=== PATIENT | female | born 1970 | race Caucasian/White ===

== ENCOUNTER 2018-02-23 09:03 | Outpatient (CLI) | payer OTHER, SELFPAY ==
--- NOTE | 2018-02-23 10:30 | DI.RAD_ITS ---
SYMPTOM/DIAGNOSIS: EPIGASTRIC PAIN, EARLY SATIETY UPPER GI: Fluoroscopy Time: 1 min 54 seconds Routine examination was performed. Preliminary xray of the abdomen shows no evidence of bowel obstruction. There is a normal swallowing mechanism. No gastroesophageal reflux is seen. No ulcers, strictures, intrinsic or extrinsic masses are seen in the esophagus. There is normal transit through the stomach. No evidence of gastric outlet obstruction is seen. There is a small diverticulum arising from the second portion of the duodenum. The duodenal wall has a normal appearance. IMPRESSION: Small duodenal diverticulum. Otherwise unremarkable upper GI.
[2018-02-23] MEDS: Barium Sulfate 60% W/V 355 ML BTL PO (10:39)
[2018-02-23 12:13] LABS: ALT 20 U/L (12-78); Lipase 154 U/L (73-393)
== END 2018-02-23 09:23 ==
PROVIDERS: PCP General Practice; Visit Provider General Practice
DX: R10.9 Unspecified abdominal pain (principal); R10.13 Epigastric pain; K57.10 Diverticulosis of small intestine without perforation or abscess without bleeding; R68.81 Early satiety
CPT/HCPCS: 36415; 83690; 74247; 84460; J3490

== ENCOUNTER 2019-02-17 16:24 | Outpatient (REF) | payer MEDICAID, SELFPAY ==
--- NOTE | 2019-02-17 15:30 | PAPFT_PTH ---
PATIENT: JASIEL GONSALVES LOC: [facility] U#:[id number] AGE/SX: 48/F ROOM: RE02/17/[address]: Jules Palma : 1970 BED: DIS: 02/17/2019 SPEC #: [id number] RECD: 02/17/19 18:04 STATUS: CINDY REQ #: [id number] MIRIAM: 02/17/19 15:[address]: Jules Palma DEPT: [facility] Cytology RECD BY: Keira Tellez ENTERED: 02/17/19 18:04 SP TYPE: PAPFT OTHR DR: Mateo Boggs Tissues: 1 - CX/ENDOCX FOR PAP SMEARS Procedures: PAP THIN PREP/UVM Screening HPV DNA PROBE Comments: [id number]
[2019-02-17 19:11] LABS: HCT 42.5 % (36.0-46.0); Mean Corp. HGB Concentration 32.9 g/dL (32.0-36.0); Mean Corpuscular Hemoglobin 29.5 pg (27.0-33.0); Mean Corpuscular Volume 89.5 fL (80-95); Mean Platelet Volume 12.6 fL (8.0-11.0); Platelet Count 222 x1000/uL (130-400); RBC 4.75 m/cumm (4.00-5.20); RBC Distribution Width 13.9 % (11.7-14.6)
[2019-02-17 19:29] LABS: ALT 18 U/L (14-59); AST 16 U/L (15-37); Alkaline Phosphatase 95 U/L (46-116); Anion Gap 9.3 mmol/L (3-11); BUN 9 mg/dL (7-18); Bilirubin, Total 0.7 mg/dL (0.2-1.0); CO2 31.7 mmol/L (21.0-32.0); CREATININE 0.86 mg/dL (0.55-1.02); Calcium 9.5 mg/dL (8.5-10.1); Calculated LDL 102 mg/dL; Chloride 103 mmol/L (98-107); Cholesterol 170 mg/dL (<200); Glucose 97 mg/dL (74-106); HDL Cholesterol 44 mg/dL (40-60); Potassium 4.1 mmol/L (3.5-5.1); Sodium 144 mmol/L (136-145); TSH 1.39 uIU/mL (0.36-3.74); Total Protein 7.1 g/dL (6.4-8.2); Triglyceride 121 mg/dL (<150)
== END 2019-02-17 16:44 ==
LOC: NCHCN 16:24
PROVIDERS: PCP General Practice; Visit Provider Nurse Practitioner Family
DX: R10.11 Right upper quadrant pain (principal); Z13.220 Encounter for screening for lipoid disorders; Z12.4 Encounter for screening for malignant neoplasm of cervix; Z11.51 Encounter for screening for human papillomavirus (HPV); Z00.00 Encounter for general adult medical examination without abnormal findings
CPT/HCPCS: 80053; 80061; 85027; 88142; 84443; 87624

== ENCOUNTER 2019-02-28 11:41 | Day surgery (SDC) | payer MEDICAID, SELFPAY ==
--- NOTE | 2019-02-28 06:56 | ENDO_ITS ---
Date of service: 02/28/19 Time of Service: 12:46 Endoscopy Report DATE OF PROCEDURE: 02/28/19 PRE-OP DIAGNOSIS: Blaoting and early satiety POST-OP DIAGNOSIS: other (Gastritis, Duodenitis and esophagitis) PROCEDURE: EGD with biopsies SURGEON: Jennifer Recinos ANESTHESIA: other (General/ ASA 2/Mateo Bailon, NICOLE) ESTIMATED BLOOD LOSS: 3 PATHOLOGY: other (Duodenal bx, Antrum bx, GE junction bx) COMPLICATIONS: None DISPOSITION: same day INDICATIONS: Mrs. Clement is a pleasant 48 year old female here today because she has been having increased bloating and early satiety for about 1 year. She denies post-prandial pain or weight loss. She denies hematemesis. She denies burning chest pain or abdominal pain. She hasn't had diarrhea. She sometimes feels she can't empty her bowels completely and ends up going several times per day. The stool is normally soft. She also tells me that she has been belching a lot more. She had a small bowel follow through which showed a duodenal diverticulum. No US has been done or CT scan FINDINGS: Duodenitis, Gastritis and esophagitis ? Thyroid nodule noted when patients head was back on the pillow PROCEDURE DESCRIPTION: After informed consent was obtained the patient was take to the procedure room and placed in a supine position. Monitors were applied and a time out was done. The patients name, date of , procedure type, allergies to medications and metal in their body was reviewed. A bite block was placed and the patient was sedated. Once sedated and comfortable the gastroscope was advanced through the oropharynx which was grossly normal into the esophagus. The proximal and mid- esophagus were normal. In the distal esophagus there was inflammation noted. The scope was advanced into the stomach and through the pylorus into the 3rd portion of the duodenum. The duodenum was noted to have some inflammation. Biopsies were done. The scope was retracted back into the stomach. There was moderate inflammation noted and biopsies were done to rule out H. pylori. There were no ulcers. The scope was retro-flexed. The cardia and fundus were noted to be normal. There was no hiatal hernia noted. The scope was retracted back into the esophagus and biopsies were done of the GE junction to rule out Lockett's. The Z line was irregular. The GE junction was at 40 cm. The scope was removed and the patient was woken up and taken back to [facility] in stable condition. Follow up: 3 weeks
--- NOTE | 2019-02-28 06:57 | PDOC.DSDIS_ITS ---
Discharge Plan Disposition Patient Disposition: HOME Condition: Good Discharge Details Reason For Visit: BLOATING,EARLY SATIETY Attending Provider: Jennifer Recinos Primary Care Provider: Jules Palma Home Meds and New Rx's Prescriptions: New omeprazole magnesium [Acid Trauma Director (omeprazole)] 20 mg capsule,delayed release(DR/EC) 20 mg PO DAILY Qty: 30 RF: 5 Continued albuterol sulfate [ProAir HFA] 90 mcg/actuation HFA aerosol inhaler 2 puff IH Q6H PRNRF: 0 nicotine [Nicoderm CQ] 7 mg/24 hr patch 24 hour 1 patch TD Q24H RF: 0 Discharge Instructions Instructions: Diet for Stomach Ulcers and Gastritis (GEN), Duodenitis (DC), Gastritis (DC), Esophagitis (DC) Additional Instructions: Findings: Inflammation of the small bowel, stomach and esophagus Follow up: 3 weeks New Medication: Please start taking Omeprazole 20 mg daily Please call if you develop: fevers >101.5 Nausea or Vomiting Abdominal pain that is not transient DAY SURGERY UNIT POST ENDOSCOPY INSTRUCTIONS 1. Because there will be medication in your system for the next 24 hours, you may feel a little sleepy. Your coordination will be affected. Therefore: a. Do not drive or operate dangerous equipment for 24 hours. b. Do not drink alcohol beverages for 24 hours (not even beer). c. Plan to go home and rest for the day. 2. Generally there are no restrictions on your activity after a day or so has gone by, but you may feel a bit fatigued for a few days. 3 After you arrive home you may have a light meal and return to a normal diet as you can tolerate it without feeling sick to your stomach. 4. After surgery, you may feel pain or discomfort. This should be only transient, but if it persists please contact your doctor. 5. If there are any questions regarding the findings of your procedure, please feel free to contact your doctor. 6. If you are unable to contact your doctor with a problem, contact the hospital at [phone]. 7. Continue all your regular medications unless directed otherwise. I understand the above instructions and have no questions. Signature of Patient or Responsible Adult Escort Date/Time Name of Responsible Adult Escort Signature of Nurse Date/Time Activity:: Activity as Tolerated Diet:: low acid Discharge Orders Discharge Orders: Discharge Order (Routine); Ordered 02/28/19 Ordered By: Jennifer Recinos DS: Diagnosis Discharge Diagnosis (1) Gastritis and duodenitis: Status: Acute (2) Esophagitis determined by endoscopy: Status: Acute
[2019-02-28 12:06] VITALS: BP 144/92; PULSE 70; RESP 16; TEMP 35.8; O2SAT 99
[2019-02-28] MEDS: Lactated Ringers 1,000 ML 80 ML IV (12:22)
[2019-02-28] MEDS: Lidocaine 2% Viscous 15 ML CUP (12:40)
--- NOTE | 2019-02-28 12:49 | STOM_PTH ---
PATIENT: JASIEL GONSALVES LOC: [facility] U#:[id number] AGE/SX: 48/F ROOM: RE02/28/[address]: Jennifer Recinos MD : 1970 BED: DIS: 02/28/2019 SPEC #: [id number] RECD: 02/28/19 17:00 STATUS: CINDY REKarla #: [id number] MIRIAM: 02/28/19 12:[address]: Jennifer Recinos DEPT: Surgical Specimen RECD BY: Keira Tellez ENTERED: 02/28/19 17:01 SP TYPE: STOMACH OTHR DR: Jules Palma Tissues: 1 - BIOPSY BOWEL 2 - STOMACH BIOPSY 3 - ESOPHAGUS BIOPSY Procedures: GROSS AND MICRO LEVEL 4 Comments: [id number]
[2019-02-28 13:40] VITALS: BP 131/74; PULSE 67; RESP 17; TEMP 36.2; O2SAT 99
== END 2019-02-28 13:56 | disposition home or self-care (01) ==
PROVIDERS: PCP Nurse Practitioner Family; Visit Provider Surgery
PROC: 0DJ68ZZ Inspection of Stomach, Via Natural or Artificial Opening Endoscopic (ICD-10-PCS; CPT 43235; principal; 2019-02-28 13:30)
DX: R14.0 Abdominal distension (gaseous) (principal); R68.81 Early satiety; K29.70 Gastritis, unspecified, without bleeding; K31.89 Other diseases of stomach and duodenum; K21.0 Gastro-esophageal reflux disease with esophagitis
CPT/HCPCS: 43239; 88305; J2250; J2704; J3010

== ENCOUNTER 2019-03-19 15:41 | Emergency (ER) | payer MEDICAID, SELFPAY ==
[2019-03-19 15:48] VITALS: BP 134/78; PULSE 82; RESP 18; TEMP 36.7; O2SAT 99
--- NOTE | 2019-03-19 16:19 | ED.GENADUL_ITS ---
Discharge Plan Disposition Patient Disposition: HOME Condition: Stable Discharge Details Chief Complaint: Abd Prob Clinical Impression: Gallstones Primary Care Provider: Jules Palma ED Provider: Kelly Morris Home Meds and New Rx's Prescriptions: New tramadol 50 mg tablet 50 mg PO BID PRN (Reason: pain) Qty: 6 RF: 0 Continued nicotine [Nicoderm CQ] 7 mg/24 hr patch 24 hour 1 patch TD Q24H RF: 0 omeprazole magnesium [Acid Robotics Technician (omeprazole)] 20 mg capsule,delayed release(DR/EC) 20 mg PO DAILY Qty: 30 RF: 5 Discharge Instructions Instructions: Gallstones (ED) Additional Instructions: Follow up with primary care provider in 3-5 days. Return to ED sooner if any worsening or concerns. Please take Tylenol or Ibuprofen with food every 4-6 hours as needed for pain and swelling. No fried, fatty, dairy foods x2 to 3 days. [place] diet diet only. Return for fever vomiting or any worsening abdominal pain. Stand Alone Forms: Work Release Referrals: Jennifer Recinos MD [ [facility] STAFF PHYSICIAN] - Jules Palma NP [Primary Care Provider] - Discharge Data Discharge Date/Time-TO BE ENTERED AT DEPARTURE: 03/19/19 18:25 Medical Decision Making 1622: Labs ordered, urinalysis sent to lab, CT abdomen pelvis with IV contrast ordered to evaluate gallbladder. 1626: EKG obtained, no old. Rate of 80 MA intervals 112 QT QTC is 376/434 sinus rhythm, no ST elevation or depression noted no ectopy. 1744: PROCEDURE INFORMATION: Exam: CT Abdomen And Pelvis With Contrast Exam date and time: 03/19/2019 4:17 PM Age: 48 years old Clinical indication: Other: Ruq pain IMPRESSION: 1. Gallstone versus gallbladder polyp within the gallbladder. There are scattered regions of gallbladder wall prominence. This can be seen with underdistention or inflammation. If acute cholecystitis is a concern, ultrasound is recommended. 2.Some wall prominence to the small bowel in the left upper quadrant of the abdomen. This could be related to underdistention but should be correlated with any concern for enteri tis. 3. Urinary bladder wall prominence. This can be seen with infection or underdistention. 4. Nodule in the right adrenal gland which does not fulfill the criteria for an adenoma. Adrenal mass protocol CT scan or MRI suggested for further evaluation. This can also further evaluate a small lesion in the right kidney which does not fulfill the criteria for a simple cyst. Other findings/details as above. Thank you for allowing us to participate in the care of your patient. Dictated and Authenticated by: Sue Duenas MD 03/19/2019 5:41 PM Eastern Time ([place] & [place]) 1755: Discussed CT results and lab results with patient and family, patient verbalized understanding. At this time according to the CT results it does not appear that there is any severe acute cholecystitis. Labs are all within normal limits. No leukocytosis. Patient informed of incidental findings as well. Patient just saw Dr. Romero general surgeon yesterday and is waiting for follow-up instructions. Will have patient follow-up with Dr. Recinos. Will prescribe nausea medication and small amount of pain medication. Strict return instructions given. Patient remained hemodynamically stable during the whole visit. HPI General Mode of arrival: ambulatory . Date/Time Provider Initiated Documentation: 03/19/19 15:52 . Limitations to Documentation: no limitations . Information obtained by: patient . HPI Narrative: 48-year-old female presents to the ED with midepigastric abdominal pain which radiates into her back. This seems to be chronic which she reports for x1 year reports being diagnosed with GERD, she states that today pain worsened and increased. She describes it as a tightness denies nausea vomiting diarrhea or fever. No history of abdominal surgeries. Patient is a smoker. Related Data Home Medications Medication Instructions Recorded Confirmed nicotine 7 mg/24 hr daily 1 patch TD Q24H 02/18/19 03/19/19 transdermal patch omeprazole magnesium [Acid Robotics Technician 20 mg PO DAILY #30 cap 02/28/19 03/19/19 (omeprazole)] tramadol 50 mg PO BID PRN #6 tab 03/19/19 Previous Rx's Medication Instructions Recorded omeprazole magnesium [Acid Robotics Technician 20 mg PO DAILY #30 cap 02/28/19 (omeprazole)] tramadol 50 mg PO BID PRN #6 tab 03/19/19 Allergies Allergy/AdvReac Type Severity Reaction Status Date / Time No Known Allergies Allergy Unverified 03/19/19 15:51 General Stated Complaint: Abd Prob HORTENCIA: 3 Review of Systems Narrative: Constitutional: Negative for weight loss, alert and oriented, well groomed, normal body habitus, appears comfortable. HEENT: Denies trauma, headaches, blurry vision, nasal discharge, sore throat, trouble swallowing. Chest: Denies chest pain, palpitations, irregular rhythm, hypertension. Respiratory: Denies Shortness of breath, cough, hemoptysis. GI: Denies, nausea, vomiting, diarrhea, constipation. Positive abdominal pain : Denies dysuria, hematuria, flank pain, vaginal bleeding, rectal bleeding. Neuro: Denies dizziness, blurry vision, weakness, syncope, headache or facial numbness. Hematologic: Denies easy bruising, intolerance to heat or cold, hair loss. [facility] Medical History Early satiety (Acute) Esophagitis determined by endoscopy (Inactive) mild, no Lockett's Fatigue (Acute) Gastritis (Acute) mild Right upper quadrant pain (Acute) Surgical History H/O esophagogastroduodenoscopy (Chronic ~02/28/19) History of tooth extraction (Acute) all Social History Smoking/Tobacco Use Status: Current every day Tobacco Type: cigarettes Smoking packs per day: 2 Smoking cigarettes per day: 40.0 Years smoked: 20 Smoking pack- years: 40.00 Alcohol Intake: current Alcohol Intake frequency: a few times a week Alcohol type: hard liquor Drug use: Never Substance use type: marijuana Details: Pt currently trying to quit smoking cigarrettes with patch. Last time used marijuana 02/26/19. Do you feel safe at home: Yes Do you feel safe in your relationship?: Yes Exam Const General: cooperative, comfortable, no acute distress and well developed Orientation: alert, awake and oriented x3 Resp Effort & Inspection: normal respiratory effort Auscultation: clear to auscultation bilaterally, no rhonchi and no wheezes Cardio Rate: regular rate Rhythm: regular rhythm Heart Sounds: S1 normal and S2 normal GI Inspection: normal to inspection Palpation: soft, no guarding and tender in the epigastrum and in the RUQ; Escobedo's sign negative Percussion: normal to percussion Auscultation: normal bowel sounds Course Vital Signs Vital signs: Vital Signs Temperature 36.7 C 03/19/19 15:48 Pulse 82 03/19/19 15:48 Respiratory Rate 18 03/19/19 15:48 Blood Pressure 134/78 03/19/19 15:48 Pulse Oximetry 99 03/19/19 15:48 Temperature 36.7 C 03/19/19 15:48 Temperature Source Temporal Artery Scan 03/19/19 15:48 Pulse 82 03/19/19 15:48 Respiratory Rate 18 03/19/19 15:48 Respiratory Effort Non-Labored 03/19/19 15:52 Blood Pressure 134/78 03/19/19 15:48 Blood Pressure Position Sitting 03/19/19 15:48 Pulse Oximetry 99 03/19/19 15:48 Oxygen Delivery Method Room Air 03/19/19 15:48 Oxygen Flow Rate 0 03/19/19 15:48 Pain Level 8 03/19/19 15:48
[2019-03-19 16:22] LABS: Bilirubin Negative (Negative); Blood Trace-lysed (Negative); Clarity Clear (Clear); Glucose Negative (Negative); Ketones Negative (Negative); Leukocyte Esterase Negative (Negative); Nitrite Negative (Negative); Specific Gravity 1.025 (1.005-1.025); Urobilinogen 0.2 EU/dL (Up TO 0.2); pH 6.5 (5-8)
[2019-03-19 16:24] LABS: Abs Immature Grans 0.01 k/cumm (0.0-0.09); Absolute Basophil Count 0.03 k/cumm (0.0-0.2); Absolute Eosinophil Count 0.12 k/cumm (0.0-0.7); Absolute Lymphocyte Count 2.78 k/cumm (1.2-3.4); Absolute Monocyte Count 0.47 k/cumm (0.11-0.7); Absolute Neutrophil Count 6.78 k/cumm (1.2-6.7); Basophils % 0.3; Eosinophils % 1.2; HCT 43.6 % (36.0-46.0); HGB 14.6 g/dL (12.0-15.5); Immature Grans % 0.1 %; Lymphocytes % 27.3; Mean Corp. HGB Concentration 33.5 g/dL (32.0-36.0); Mean Corpuscular Hemoglobin 29.9 pg (27.0-33.0); Mean Corpuscular Volume 89.3 fL (80-95); Mean Platelet Volume 11.8 fL (8.0-11.0); Monocytes % 4.6; Neutrophils % 66.5; Platelet Count 231 x1000/uL (130-400); RBC 4.88 m/cumm (4.00-5.20); RBC Distribution Width 14.2 % (11.7-14.6); White Blood Cell Count 10.19 k/cumm (4.4-10.8)
[2019-03-19 16:36] LABS: Bacteria Few HPF (Negative); Crystals Negative HPF (Negative); Epithelial Cells Many HPF (Negative); Mucus Negative (Negative); RBC 0-2 HPF (0-2); WBC 0-2 HPF (0-5)
[2019-03-19 16:37] LABS: C & S Indicated? No
[2019-03-19 16:42] LABS: ALT 16 U/L (14-59); AST 14 U/L (15-37); Albumin 4.2 g/dL (3.4-5.0); Alkaline Phosphatase 101 U/L (46-116); Anion Gap 9.5 mmol/L (3-11); BUN 11 mg/dL (7-18); Bilirubin, Total 0.4 mg/dL (0.2-1.0); CO2 30.5 mmol/L (21.0-32.0); CREATININE 0.91 mg/dL (0.55-1.02); Calcium 8.9 mg/dL (8.5-10.1); Chloride 102 mmol/L (98-107); Glucose 96 mg/dL (74-106); Lipase 171 U/L (73-393); Magnesium 1.9 mg/dL (1.8-2.4); Potassium 3.4 mmol/L (3.5-5.1); Sodium 142 mmol/L (136-145); Total Protein 7.5 g/dL (6.4-8.2); Troponin I < 0.05 ng/Ml (<0.06)
[2019-03-19] MEDS: Omnipaque 350 MG/ML 100 ML BTL IJ (17:08)
[2019-03-19] MEDS: Normal Saline - Diluent 50 ML VIAL IV (17:09)
--- NOTE | 2019-03-19 17:09 | DI.CT_ITS ---
EXAM: CT ABDOMEN PELVIS W CLINICAL HISTORY: RUQ abdominal pain. TECHNIQUE: Imaging Protocol: Axial computed tomography images with coronal and sagittal reformatted images were created and reviewed CONTRAST MATERIAL: Intravenous: Omnipaque 350 Contrast volume:100 mL Oral: No COMPARISON: No exams were available for comparison FINDINGS: ABDOMEN: Lung Bases: No acute pulmonary process. Liver: Normal density. No measurable mass. Gallbladder and biliary tract: There is a round density along the posterior wall of the gallbladder t his may represent a stone or a polyp. Gallbladder ultrasound may be obtained for further evaluation. (Series 5, image 232). Pancreas: Normal density, no abnormal calcifications or inflammatory process. Spleen: Normal. Kidneys: Normal size, contour and axis. No radiodense stones or obstructive uropathy. There are hypod ensities seen in both kidneys. They are too small for further characterization. They likely reflect cysts. Adrenal glands: There is a 2.4 centimeter hypodense nodule on the right adrenal gland. Abdominal Aorta: Abdominal portion non-dilated. PELVIS: Bladder: Symmetric distention, no gross wall thickening. Bowel: There is mild thickening of the wall of small bowel in the left upper quadrant. This may repr esent an inflammatory or infectious process. There is a normal appendix. There is diverticulosis of the colon. No evidence of acute diverticulitis is present. There is no evidence of obstruction. Peritoneal cavity: No ascites, collection or mesenteric inflammatory response. Bones: No acute abnormality. Mild degenerative changes are present. Reproductive organs: Within normal limits. Lymph nodes: Unremarkable. Impression: 1. Mild wall thickening in small bowel loops in the left upper quadrant. This may represent an infec tious or inflammatory enteritis. 2. Tiny density along the posterior wall of the gallbladder. This may represent a stone or polyp. N o biliary ductal dilatation is seen. Gallbladder ultrasound may be obtained for further evaluation. 3. 2.4 centimeter hypodense nodule in the right adrenal gland. Non emergent follow-up is recommended . DATA REPOSITORY: All CT scans at this facility are submitted to the National Radiology Data Registry (NRDR) Dose Index Registry (DIR) with the [employer] (ACR). RADIATION OPTIMIZATION: All CT scans at this facility use at least one of these dose optimization te chniques: automated exposure control; mA and/or kV adjustment per patient size (includes targeted exa ms where dose is matched to clinical indication); or iterative reconstruction.
--- NOTE | 2019-03-19 17:39 | DI.VRAD_ITS ---
PROCEDURE INFORMATION: Exam: CT Abdomen And Pelvis With Contrast Exam date and time: 03/19/2019 4:17 PM Age: 48 years old Clinical indication: Other: Ruq pain TECHNIQUE: Imaging protocol: Computed tomography of the abdomen and pelvis with intravenous contrast. Other contrast: Route: Catheter; COMPARISON: RF upper GI series 02/23/2018 9:12 AM FINDINGS: Lungs: Linear atelectasis or scarring at the lung bases. Liver: Too small to characterize hypodensities in the liver. Gallbladder and bile ducts: Gallstone versus gallbladder polyp within the gallbladder, series 5, image 232. There are also scattered regions of gallbladder wall prominence which could be related to underdistention. Pancreas: Normal. No ductal dilation. Spleen: Normal. No splenomegaly. Adrenals: 2.4 cm 34 Hounsfield unit nodule, right adrenal gland, not fulfilling the criteria for an adenoma. Kidneys and ureters: Cystic structure and too small to characterize hypodensities in the left kidney. 1 cm 33 Hounsfield unit hypodensity, right kidney, series 5, image 180. This does not fulfill the criteria for a simple cyst. Stomach and bowel: No obstruction. Some wall prominence to the small bowel in the left upper quadrant of the abdomen. This could be related to underdistention but should be correlated with any concern for enteritis. Diverticulosis. Appendix: No evidence of appendicitis. Intraperitoneal space: No free air. Vasculature: Unremarkable. No abdominal aortic aneurysm. Lymph nodes: Unremarkable. No enlarged lymph nodes. Bladder: Urinary bladder wall prominence. This can be seen with infection or underdistention. Reproductive: Unremarkable as visualized. Bones/joints: Scattered sclerotic foci in the bones. In the absence of known malignancy, these most likely represent bone islands. Skeletal degenerative changes. No acute fracture. Disc space narrowing at L5-S1 with corresponding vacuum phenomenon Soft tissues: Unremarkable. IMPRESSION: 1. Gallstone versus gallbladder polyp within the gallbladder. There are scattered regions of gallbladder wall prominence. This can be seen with underdistention or inflammation. If acute cholecystitis is a concern, ultrasound is recommended. 2.Some wall prominence to the small bowel in the left upper quadrant of the abdomen. This could be related to underdistention but should be correlated with any concern for enteritis. 3. Urinary bladder wall prominence. This can be seen with infection or underdistention. 4. Nodule in the right adrenal gland which does not fulfill the criteria for an adenoma. Adrenal mass protocol CT scan or MRI suggested for further evaluation. This can also further evaluate a small lesion in the right kidney which does not fulfill the criteria for a simple cyst. Other findings/details as above. Dictated and Authenticated by: Sue Duenas MD. Ordering:CORBIN Mendoza MD
--- NOTE | 2019-03-19 18:39 | NUR.NOTE ---
Referral faxed to [facility] Dr Recinos, [phone].Nursing Note:
== END 2019-03-19 18:25 | disposition home or self-care (01) ==
PROVIDERS: Emergency Provider Registered Nurse Emergency; PCP Nurse Practitioner Family
DX: K80.20 Calculus of gallbladder without cholecystitis without obstruction (principal)
CPT/HCPCS: 36415; 80053; 81025; 83690; 93005; 99285; 74177; 81003; 81015; 83735; 84484; 85025; 93010; 99284; J3490

== ENCOUNTER 2019-03-23 02:21 | Outpatient (CLI) | payer MEDICAID, SELFPAY ==
--- NOTE | 2019-03-23 07:29 | DI.US_ITS ---
EXAM: US ABDOMEN CLINICAL HISTORY: EGD SHOWED MILD INFLAMMATION,EARLY SATEITY,R68.81,ABD [id number],? CHOLELITHI ASIS OR CHOLECYSTITIS TECHNIQUE: Ultrasound abdomen performed using standard protocol. COMPARISON: No exams were available for comparison FINDINGS: LIVER: Normal. Hepatopetal flow through the portal vein. GALLBLADDER: No evidence of cholelithiasis. No evidence of wall thickening. No pericholecystic fluid identified. There are a few round, echogenic nonshadowing foci along the wall of the gallbladder. T hese likely reflect small polyps. KIDNEYS: Kidneys are symmetric in size. No evidence of renal calculi. No evidence of hydronephrosis. No renal mass or cyst identified. BILIARY SYSTEM: Common bile duct measures 3.4 mm. No intrahepatic biliary ductal dilation. PAEZ'S SIGN: Negative. PANCREAS: Normal where visualized. SPLEEN: Not enlarged. ABDOMINAL AORTA AND IVC: Visualized portions normal caliber. ASCITES: None seen. IMPRESSION: Small, echogenic, immobile nonshadowing foci along the wall of the gallbladder. These likely reflect small polyps.
== END 2019-03-23 02:41 ==
PROVIDERS: PCP Nurse Practitioner Family; Visit Provider Surgery
DX: K20.9 Esophagitis, unspecified (principal); R14.0 Abdominal distension (gaseous); R68.81 Early satiety; K82.4 Cholesterolosis of gallbladder
CPT/HCPCS: 76700

== ENCOUNTER 2019-03-29 00:50 | Outpatient (CLI) | payer MEDICAID, SELFPAY ==
--- NOTE | 2019-03-29 13:43 | DI.NM_ITS ---
EXAM: NM HEPATOBILIARY CCK GRP CLINICAL HISTORY: RUQ ABD PAIN, BLOATING, R10.11, R14.0, R/O Biliary Dyskenesia. COMPARISON: No exams were available for comparison EXAMINATION: 5.0 millicuries of technetium 99 M mebrofenin were administered IV. 1.0 micrograms o f CCK was infused 45 minutes via IV drip. FINDINGS: There is normal hepatic uptake. There is attenuation by abdominal soft tissues at the superior aspe ct of the right lobe of the liver. The biliary tree, gallbladder and small bowel are promptly visual ized. Gallbladder ejection fraction is calculated at 91 percent, in the normal range. IMPRESSION: Negative CCK hepatobiliary scan.
== END 2019-03-29 01:10 ==
PROVIDERS: PCP Nurse Practitioner Family; Visit Provider Surgery
DX: R10.11 Right upper quadrant pain (principal); R14.0 Abdominal distension (gaseous)
CPT/HCPCS: 78227

== ENCOUNTER 2020-02-21 16:00 | Outpatient (REF) | payer MEDICAID, SELFPAY ==
[2020-02-21 19:36] LABS: Abs Immature Grans 0.02 10^3/uL (0.0-0.06); Absolute Basophil Count 0.03 10^3/uL (0.0-0.2); Absolute Eosinophil Count 0.04 10^3/uL (0.0-0.7); Absolute Lymphocyte Count 1.72 10^3/uL (1.2-3.4); Absolute Monocyte Count 0.38 10^3/uL (0.1-0.8); Absolute Neutrophil Count 4.79 10^3/uL (1.2-6.7); Basophils % 0.4; Eosinophils % 0.6; HCT 46.1 % (36.0-46.0); HGB 15.2 g/dL (11.2-15.7); Immature Grans % 0.3; Lymphocytes % 24.6; MCV 90.9 fL (80-95); MPV 13.2 fL (8.0-11.0); Monocytes % 5.4; Neutrophils % 68.7; Nucleated RBC 0 %; Platelet Count 241 10^3/uL (130-400); RBC 5.07 10^6/uL (3.93-5.22); RDW 12.9 % (11.7-14.6); RDW-SD 42.9 fL; WBC 6.98 10^3/uL (4.4-10.8)
[2020-02-21 20:04] LABS: Bilirubin Negative (Negative); Blood Small (Negative); Clarity Cloudy (Clear); Glucose Negative (Negative); Ketones Negative (Negative); Leukocyte Esterase Negative (Negative); Nitrite Negative (Negative); Specific Gravity >= 1.030 (1.005-1.025); Urobilinogen 0.2 EU/dL (Up TO 0.2); pH 5.5 (5-8)
[2020-02-21 20:05] LABS: ALT 23 U/L (14-59); AST 12 U/L (15-37); Albumin 4.5 g/dL (3.4-5.0); Alkaline Phosphatase 98 U/L (46-116); Anion Gap 8.3 mmol/L (3-11); BUN 9 mg/dL (7-18); Bilirubin, Total 0.4 mg/dL (0.2-1.0); CO2 26.7 mmol/L (21.0-32.0); CREATININE 0.87 mg/dL (0.55-1.02); Calcium 9.9 mg/dL (8.5-10.1); Chloride 103 mmol/L (98-107); Glucose 106 mg/dL (74-106); Potassium 4.6 mmol/L (3.5-5.1); Sodium 138 mmol/L (136-145); TSH (W/Ref FT4) 0.74 uIU/mL (0.36-3.74); Total Protein 7.7 g/dL (6.4-8.2)
[2020-02-21 20:49] LABS: Bacteria Negative HPF (Negative); C & S Indicated? No; Casts Negative LPF (Negative); Crystals Many Amorphous HPF (Negative); Epithelial Cells Negative HPF (Negative); Mucus Negative (Negative); Other Cells Negative (Negative); RBC Negative HPF (0-2); WBC Negative HPF (0-5)
[2020-02-21 22:30] LABS: ESR 4 mm/hr (0-20)
[2020-02-21 22:40] LABS: Diff Comment PLT Morph Reviewed
[2020-02-23 10:08] LABS: Hepatitis C Ab w Rflx HCV PCR Negative (Negative)
[2020-02-23 10:32] LABS: HIV-1/2 Ag & Ab Screen Negative (Negative)
[2020-02-27 14:18] LABS: IgA 150 mg/dL (85-499); Interpretation (See Note); Tissue Transglutaminase IgA <1.2 U/mL (<4.0)
== END 2020-02-21 16:20 ==
LOC: NCHCN 16:00
PROVIDERS: PCP Nurse Practitioner Family; Visit Provider Nurse Practitioner Family
DX: R10.11 Right upper quadrant pain (principal); R10.12 Left upper quadrant pain; R63.5 Abnormal weight gain; R14.0 Abdominal distension (gaseous); R53.83 Other fatigue; R68.81 Early satiety; Z11.4 Encounter for screening for human immunodeficiency virus [HIV]; Z11.59 Encounter for screening for other viral diseases
CPT/HCPCS: 80053; 82784; 83516; 85652; 86803; 87389; 81003; 81015; 84443; 85025

== ENCOUNTER 2020-04-05 13:55 | Emergency (ER) | payer MEDICAID, SELFPAY ==
[2020-04-05] VITALS (7 sets, daily range): BP systolic 136–167; BP diastolic 91–93; PULSE 98–140; RESP 20–27; TEMP 36.7; O2SAT 97–100
--- NOTE | 2020-04-05 14:01 | ED.GENADUL_ITS ---
Discharge Plan Disposition Patient Disposition: HOME Condition: Stable Discharge Details Clinical Impression: Closed coracoid process fracture Primary Care Provider: Jules Palma ED Provider: Erica Egan Home Meds and New Rx's Prescriptions: New tramadol 50 mg tablet 50 mg PO TID PRN (Reason: pain) Qty: 10 RF: 0 Discharge Instructions Instructions: Scapular Fracture (ED) Additional Instructions: Rest and ice your left arm as much as possible. Wear the sling as much as possible. When you are sitting at home rest the arm in sling on a pillow. Avoid bicep curls or any lifting with your left upper extremity. Alternate tylenol and motrin as needed and directed for pain. Take the tramadol as needed and directed for pain not relieved with Tylenol or Motrin. Call the orthopedics office today to schedule follow-up appointment for reevaluation within the next week. Return immediately to the emergency department if you develop any worsening or new concerning symptoms. Stand Alone Forms: Work Release Referrals: Leonel Mcelroy MD [ [facility] STAFF PHYSICIAN] - Discharge Data Discharge Physician: Erica Egan Medical Decision Making 49-year-old female presents with left shoulder pain after slip and fall on ice using her left shoulder to brace her fall causing hyperextension. She has tenderness palpation at her left anterior shoulder and area between left chest wall and left shoulder. There is no deformity. She is neurovascular intact. She was referred for a left shoulder x-ray which noted a fracture of the coracoid process. Imaging was reviewed with Dr. Mcelroy who recommended a sling, gentle elevation, ice, avoiding bicep curls and follow-up in the office in 1 week. Patient was given a dose of ibuprofen and tramadol here as well as tramadol for home. Patient was placed on orthopedic follow-up list. Usual and customary return precautions given prior to discharge. Medical Records Medical records reviewed: Yes I reviewed the patient's medical records. Imaging Data Radiologic Study: Radiologist's impression: XR SHOULDER LT COMPLETE 2+V CLINICAL HISTORY: s/p fall, r/o acute fx. TECHNIQUE: 2D digital imaging was performed. COMPARISON: No exams were available for comparison FINDINGS: There is a subtle suggestion of a fracture of the coracoid process as seen on the subscapular Y-view. Unfortunately the patient's other hand is over this area on the axial image, making evaluation of coracoid process difficult on the axial image.. There is no evidence of fracture of the humeral head and neck. No dislocation. Benign bone island is noted in the humeral head. No clavicle nor acromial fracture nor fracture of the osseous glenoid IMPRESSION: There appears to be a subtle fracture of the coracoid process. Recommend repeating the axial view for verification. HPI General Mode of arrival: ambulatory . Date/Time Provider Initiated Documentation: 04/05/20 13:59 . Limitations to Documentation: no limitations . Information obtained by: patient . HPI Narrative: Patient is a 49-year-old female who presents with left shoulder pain after slip and fall while getting out of her car using her left arm to brace her fall hyperextending it at the left shoulder. She is complaining of pain in her left anterior shoulder. She denies head injury or any other injuries. She has not taken any medication for pain. She states she is postmenopausal. Related Data Home Medications Medication Instructions Recorded Confirmed tramadol 50 mg PO TID PRN #10 tab 04/05/20 Previous Rx's Medication Instructions Recorded tramadol 50 mg PO TID PRN #10 tab 04/05/20 Allergies Allergy/AdvReac Type Severity Reaction Status Date / Time No Known Allergies Allergy Unverified 04/05/20 15:03 General HORTENCIA: 3 Review of Systems All systems reviewed & are unremarkable except as noted in HPI and below Constitutional Constitutional: Reports as per HPI, Denies chills and Denies fever(s) Eyes Eyes: Denies blurry vision ENT Ears, Nose, Mouth, and Throat: Denies dizziness, Denies sore throat and Denies throat swelling Cardiovascular Cardiovascular: Denies chest pain and Denies dyspnea Respiratory Respiratory: Denies cough and Denies dyspnea Gastrointestinal Gastrointestinal: Denies abdominal pain, Denies diarrhea and Denies vomiting Genitourinary Genitourinary: Denies hematuria and Denies dysuria Musculoskeletal Musculoskeletal: Denies back pain and Denies numbness Integumentary/Breasts Skin/Breast: Denies lesions and Denies rash Neurologic Neurologic: Denies dizziness, Denies localized weakness and Denies numbness Allergic/Immunologic Allergic/Immunologic: Denies throat swelling [facility] Medical History (Updated 04/05/20 @ 15:36 by Erica Egan DO) Early satiety Esophagitis determined by endoscopy mild, no Lockett's Fatigue Gastritis mild Right upper quadrant pain Surgical History H/O esophagogastroduodenoscopy (~02/28/19) History of tooth extraction all Social History Smoking/Tobacco Use Status: Current every day Tobacco Type: cigarettes Smoking packs per day: 2 Smoking cigarettes per day: 40.0 Years smoked: 20 Smoking pack- years: 40.00 Smoking risk assessment performed?: Yes Alcohol Intake: current Alcohol Intake frequency: a few times a week Alcohol type: hard liquor Drug use: Daily Substance use type: marijuana Details: Pt currently trying to quit smoking cigarrettes with patch. Do you feel safe at home: Yes Do you feel safe in your relationship?: Yes Exam Const General: cooperative, healthy appearing and no acute distress HENMT Head: normal to inspection Mouth: oral mucosae normal Eyes General: appearance normal, both eyes and all related structures Neck Neck: normal visual inspection Resp Effort & Inspection: normal respiratory effort and able to speak in complete sentences Cardio Rate: regular rate Skin General skin exam: no rashes or lesions noted Neuro General: patient alert, patient awake and patient oriented x3 Motor: muscle tone normal throughout Extrem General: capillary refill normal Shoulder/upper arm images: 1. Tenderness to palpation to left anterior shoulder, extending to the area in between the left chest wall and left shoulder. Pain in this area with range of motion with limited abduction to approximately 40 degrees. No deformity. No tenderness palpation to left clavicle. No tenderness to palpation to left distal upper arm. There is no edema, ecchymosis, deformity. Left radial was intact. Psych Appearance: grossly normal Affect: normal affect
[2020-04-05] MEDS: Ibuprofen 600 MG TAB PO (14:20)
[2020-04-05] MEDS: Lidocaine 5% Patch 1 PATCH TP (14:20)
--- NOTE | 2020-04-05 14:37 | DI.RAD_ITS ---
EXAM: XR SHOULDER LT COMPLETE 2+V CLINICAL HISTORY: s/p fall, r/o acute fx. TECHNIQUE: 2D digital imaging was performed. COMPARISON: No exams were available for comparison FINDINGS: There is a subtle suggestion of a fracture of the coracoid process as seen on the subscapular Y-view. Unfortunately the patient's other hand is over this area on the axial image, making evaluation of c oracoid process difficult on the axial image.. There is no evidence of fracture of the humeral head and neck. No dislocation. Benign bone island i s noted in the humeral head. No clavicle nor acromial fracture nor fracture of the osseous glenoid IMPRESSION: There appears to be a subtle fracture of the coracoid process. Recommend repeating the axial view fo r verification. DATA REPOSITORY: RADIATION DOSE DELIVERED:
[2020-04-05] MEDS: traMADol 50 MG TAB PO (15:43)
== END 2020-04-05 15:55 | disposition home or self-care (01) ==
PROVIDERS: Emergency Provider Physician Assistant; PCP Nurse Practitioner Family
DX: S42.132A Displaced fracture of coracoid process, left shoulder, initial encounter for closed fracture (principal); W00.0XXA Fall on same level due to ice and snow, initial encounter
CPT/HCPCS: 81025; 99284; 73030

== ENCOUNTER 2020-04-11 11:12 | Outpatient (CLI) | payer MEDICAID, SELFPAY ==
--- NOTE | 2020-04-11 11:00 | DI.RAD_ITS ---
EXAM: XR SHOULDER LT COMPLETE 2+V CLINICAL HISTORY: f/u fracture. TECHNIQUE: 2D digital imaging was performed. COMPARISON: CR XR SHOULDER LT COMPLETE 2+V from 04/05/2020 FINDINGS: No evidence of fracture or dislocation of the glenohumeral joint nor significant degenerative changes . Benign bone island is noted in the medial half of the humeral head. There are no calcifications i n the subacromial space. On these images there appears to be subluxation of the acromioclavicular joint. Coracoid process is intact. No obvious clavicle fracture. No os acromiale. IMPRESSION: There is slight offset of the AC joint noted on these images. Correlation with site of tenderness is recommended. No fracture lines evident. DATA REPOSITORY: RADIATION DOSE DELIVERED:
== END 2020-04-11 11:13 | disposition home or self-care (01) ==
LOC: DIORS 11:12
PROVIDERS: PCP Nurse Practitioner Family; Referring Provider Nurse Practitioner Family; Visit Provider Physician Assistant
DX: S42.132D Displaced fracture of coracoid process, left shoulder, subsequent encounter for fracture with routine healing (principal); S43.102A Unspecified dislocation of left acromioclavicular joint, initial encounter
CPT/HCPCS: 73030